=== PATIENT | female | born 1990 | race African-American/Black ===

== ENCOUNTER 2023-07-11 20:26 | Emergency (ER) | payer MEDICAID, OTHER ==
[~2023-07-11] VITALS: Ht 157.5 cm; Wt 80.0 kg
[2023-07-11 20:27] VITALS: O2SAT 100
[2023-07-11 23:25] LABS: BASOPHILS % 0.6 % (0.0-2.0); EOSINOPHILS % 0.9 % (0.0-5.0); HEMATOCRIT. 36.8 % (36.0-48.0); HEMOGLOBIN. 12.5 g/dL (12.0-16.0); LYMPHOCYTES % 36.2 % (20.0-50.0); MEAN CORPUSCULAR HEMOGLOBIN 32.1 pg (28.0-32.0); MEAN CORPUSCULAR HGB CONC 33.9 g/dL (31.0-37.0); MEAN CORPUSCULAR VOLUME 94.9 fL (81.0-99.0); MEAN PLATELET VOLUME 8.6 fl (7.4-10.4); MONOCYTES % 4.8 % (2.0-8.0); NEUTROPHILS % 57.5 % (40.0-76.0); PLATELET 312 x1000/uL (130-400); RED BLOOD CELL COUNT 3.88 mill/uL (4.2-5.4); RED CELL DISTRIBUTION WIDTH 13.6 % (11.6-14.6); WHITE BLOOD COUNT 10.4 x1000/uL (4.5-11.0)
[2023-07-11 23:33] LABS: CHLORIDE 106 mEq/L (98-107); POTASSIUM 3.8 mEq/L (3.5-5.1); SODIUM 139 mEq/L (136-145)
[2023-07-11 23:34] LABS: CALCIUM 9.6 mg/dL (8.7-10.4); CARBON DIOXIDE 28 mEq/L (21-32)
[2023-07-11 23:35] LABS: HCG SCREEN NEGATIVE
[2023-07-11 23:39] LABS: CREATININE 0.7 mg/dL (0.6-1.0); GLUCOSE 92 mg/dL (70-105); UREA NITROGEN BLOOD 7 mg/dL (9-23)
[2023-07-12] MEDS: LORAZEPAM 0.5MG TABLET PO ONE (01:06)
[2023-07-12 01:15] VITALS: BP 128/82; PULSE 69; RESP 18; TEMP 98.6
== END 2023-07-12 01:15 | disposition home or self-care (01) ==
LOC: ER 20:26
DX: F41.9 Anxiety disorder, unspecified (principal); J45.909 Unspecified asthma, uncomplicated
CPT/HCPCS: 36415; 80048; 84703; 85025; 99283